=== PATIENT | male | born 1980 | race Caucasian/White ===

== ENCOUNTER 2024-05-02 02:11 | Emergency (ER) | payer MEDICAID, SELFPAY ==
[2024-05-02 02:17] VITALS: BMI 33.5
[2024-05-02 02:18] VITALS: BP 196/116; PULSE 84; RESP 18; TEMP 36.6; O2SAT 95
--- NOTE | 2024-05-02 02:22 | EKG_ITS ---
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
--- NOTE | 2024-05-02 02:22 | XR_ITS ---
Examination: CT abdomen and pelvis without contrast. Coronal 3-D reconstructions. Sagittal 2-D reconstructions. Date and time of exam:May 02, 2024 0244 hrs. Indications: Onset left-sided flank pain today CTDI: vol (mGy): 11.81 DLP: (mGycm): 718 Technique: Axial images of the abdomen have been obtained, 3 mm slice thickness Intravenous contrast material has not been administered. Low dose protocols were performed. One or more of the following dose reduction techniques were used; automated exposure control, adjustment of the mA and/or KV according to patient size, use of iterative reconstruction technique. Findings: Diffuse fatty infiltration throughout the liver Absent gallbladder Spleen not enlarged No pancreatic mass 34 mm right adrenal mass which is partly fat-containing Mild to moderate bilateral renal parenchymal scar formation with perinephric stranding No renal or ureteral calculi, no hydronephrosis 12 mm fat-containing umbilical hernia Normal appendix No bowel obstruction No prostatomegaly No bladder mass Moderate disc narrowing L5-S1 L5-S1 3 mm central lumbar disc bulge Impression: 34 mm right adrenal mass which is partly fat-containing, recommend elective MRI abdomen adrenal glands follow-up, pre and postcontrast No renal or ureteral calculi, no hydronephrosis, minimal perinephric stranding, clinical correlation advised Normal appendix Moderate degenerative disc disease L5-S1, 3 mm central lumbar disc bulge
--- NOTE | 2024-05-02 02:22 | XR_ITS ---
Examination: CT brain head without contrast. 2-D sagittal coronal reconstructions Date and time of exam:May 02, 2024 0242 hrs. Indications: Headaches with high blood pressure today CTDI: vol (mGy):49.70 DLP: (mGycm):997 Technique: Multiple CT axial sections of the brain have been obtained, 5 mm slice thickness. Contrast has not been administered. 2-D sagittal, coronal reconstructions have been obtained Low dose protocols were performed. One or more of the following dose reduction techniques were used; automated exposure control, adjustment of the mA and/or KV according to patient size, use of iterative reconstruction technique. Findings: No significant ventricular enlargement. Intra-axial or extra-axial hemorrhage density is not seen. No mass effect or midline shift Basal cisterns are not remarkable. Fourth ventricle is midline. Cranial vault intact. Impression: Negative for acute hemorrhage, mass effect or midline shift
--- NOTE | 2024-05-02 02:23 | XR_ITS ---
Examination: AP chest single view Technique one AP portable upright chest single view Exam date and time: May 02, 2024 1446 hours INDICATIONS: Shortness of breath today. FINDINGS: Mild vascular congestion Normal heart size No pneumonia IMPRESSION: Mild vascular congestion
--- NOTE | 2024-05-02 02:24 | EDNOTE_ITS ---
ED Headache RME/HPI General Chief Complaint: Medical Clearance Stated Complaint: MEDICAL CLEARANCE FOR HALF-WAY Time Seen by Provider: 05/02/24 02:18 Arrival date/time: 05/02/24 02:11 RME / HPI RME / HPI Narrative: This section includes all my notes and documentations, including HPI, PE, and ED course. Toby Blunt MD HPI: 43-year-old female here to be evaluated for medical clearance for incarceration due to high BP. He reports having history of hypertension. But has not been compliant with his BP medication for many months. He reports headaches and chest pain for the past week. And left flank pain. No other complaints. ROS: Respiratory: negative except as documented in HPI. Gastrointestinal: negative except as documented in HPI. Genitourinary: negative except as documented in HPI. Musculoskeletal: negative except as documented in HPI. Skin: negative except as documented in HPI. Neurological: negative except as documented in HPI. Physical Exam: General: Alert and oriented. No acute distress. Eyes: Conjunctivae and lids clear. EOMI. PERRL. ENT: No nasal congestion. Neck: Supple. No carotid bruit. No JVD. Heart: Sinus tachycardia noted. Lungs: No respiratory distress. Good air movement. No rhonchi, wheezing, rales. Chest: No tenderness. Abdomen: Soft and nontender. Normal bowel sounds. No distension. No rebound or guarding. Back: No CVA tenderness. Legs: No clubbing, cyanosis, edema. Skin: Warm and dry. Neuro: Alert and oriented X 3. Cranial Nerves II-XII grossly intact. No peripheral motor deficits. I reviewed all diagnostic test results. My interpretation of the EKG is sinus rhythm with nonspecific ST-T changes. My interpretation of the chest x-ray is no acute findings. My review of the head CT report is no acute findings. My review of the abdominal CT report is no acute findings. Blood tests and urine tests are unremarkable, except UDS positive for methamphetamine and marijuana. At this point, diagnoses include hypertension. Treatment here included clonidine and metoprolol. Significant improvement noted subjectively and objectively. Recommended more outpatient care. Based on my best medical judgment, made decision no further evaluation or treatment indicated at this time. Patient understands and agrees to the discharge instructions customized and printed, see below. Discharge Instructions from Dr. Blunt printed for you: 1. Fortunately, there is no life-threatening condition. Such as stroke or heart attack. 2. But to prevent future strokes and heart attacks, take metoprolol ER 100 mg every night. You will live longer with lower BP and slower heart rate. 3. See a private doctor on 05/03/2024 or whenever you are released. Ask to help you stay healthy, helping you to quit drugs, with good management of your BP, helping you to prevent future heart attacks and strokes, and with regular physical exam and health maintenance. Ask to review all test results and official radiology reports, to make sure you receive all necessary follow-ups and monitoring. 4. Seek immediate medical care with any concerns. Toby Blunt MD Related Data Previous Rx's ?Medication ?Instructions ?Recorded metoprolol succinate 100 mg 100 mg PO QDAY #30 tabs 05/02/24 tablet,extended release 24 hr Allergies Allergy/AdvReac Type Severity Reaction Status Date / Time No Known Allergies Allergy Verified 05/02/24 02:20 Course Quality Measures none Orders Category Date Time Status EKG (ED ONLY) *Do not use* NOW Care 05/02/24 02:[address] abdomen pelvis wo con Stat Exams 05/02/24 02:[address] head/brain wo con Stat Exams 05/02/24 02:22 Taken EKG (ED Only) Stat Exams 05/02/24 02:22 Draft XR chest 1V portable Stat Exams 05/02/24 02:23 Taken Alcohol, Blood Medical Stat Lab 05/02/24 02:32 Completed CBC Stat Lab 05/02/24 02:32 Completed CMP [Comprehensive Metabolic Panel] Stat Lab 05/02/24 02:32 Completed Drug Screen,Urine Stat Lab 05/02/24 03:09 Completed Magnesium Stat Lab 05/02/24 02:32 Completed TSH [Thyroid Stimulating Hormone] Stat Lab 05/02/24 02:32 Completed Troponin I Stat Lab 05/02/24 02:32 Completed UA [Urinalysis] Stat Lab 05/02/24 03:09 Completed KCL 10% Liq UDC 15 ML Med 05/02/24 03:20 Discontinued 40 meq PO X1 ONE Metoprolol Succinate Xl [Toprol Xl] Med 05/02/24 02:18 Discontinued 100 mg PO X1 ONE cloNIDine HCL [Catapres] Med 05/02/24 02:18 Discontinued 0.3 mg PO X1 ONE Vital Signs Vital signs: Vital Signs Temperature 97.8 F 05/02/24 02:18 Pulse Rate 84 05/02/24 02:18 Respiratory Rate 18 05/02/24 02:18 Blood Pressure 196/116 H 05/02/24 02:18 Pulse Oximetry (%) 95 05/02/24 02:18 Oxygen Delivery Method Room Air 05/02/24 02:18 Headache Patient data External records reviewed:: None Clinical information provided by:: patient and law enforcement Social determinants that could affect healthcare access:: substance use Patient has the following chronic illnesses:: Substance abuse and hypertension How is presenting disease/condition affected by chronic disease/condition?: exacerbated by Evaluation data The following diagnostics were reviewed and interpreted by me:: EKG tracing(s) (My interpretation of the EKG is: Sinus rhythm (82 bpm) with nonspecific ST-T changes. Toby Blunt MD) Lab and/or radiology exams considered but not ordered:: None Interpretation Summary: Hypertension Medications / Prescriptions Medications or Prescriptions considered but not ordered:: None Medication administrations:: Medication Administration History Discontinued Medications Clonidine (Clonidine Hcl 0.1 Mg Tablet) 0.3 mg PO X1 ONE Stop: 05/02/24 02:19 Last Admin: 05/02/24 02:28 Dose: 0.3 mg Documented By: GB Metoprolol Succinate (Metoprolol Succinate Xl 25 Mg Tabcr) 100 mg PO X1 ONE Stop: 05/02/24 02:19 Last Admin: 05/02/24 02:29 Dose: 100 mg Documented By: GB Potassium Chloride (Potassium Chloride 10% 20 Meq/15 Ml Udc) 40 meq PO X1 ONE Stop: 05/02/24 03:21 Metoprolol and clonidine and oral KCl Consultations Consultation(s) initiated? (list below): No Diagnosis Differential diagnosis headache: migraine, tension headache, subarachnoid hemorrhage, headache, sinusitis and postconcussion syndrome Most likely diagnosis given after review of the tests above:: Hypertension Admission Indicated Admission indicated?: not indicated Admission Request Was there a request for admission?: No Disposition Plan Disposition Plan: Discharge Discharge Attestation Discharge Attestation: The patient and all family members were given an opportunity to ask questions and understood the discharge instructions. Discharge instructions specifically effects, indications for sooner follow up or return to the emergency department, and the expected course of current diagnosis. Patient condition: Stable Discharge Plan Plan Patient Disposition: Residential/Court/Law Prescriptions/Referrals Prescriptions/Med Rec: New metoprolol succinate 100 mg tablet extended release 24 hr 100 mg PO QDAY Qty: 30 1RF Referrals: No Primary/Family,Physician [Primary Care Provider] - In 1 week Problem List Clinical Impression: Medical clearance for incarceration, Hypertension Patient/Caregiver Discharge Instructions Discharge Activity: activity as tolerated Education Materials: ED Hypertension, Established Additional Instructions: Discharge Instructions from Dr. Blunt printed for you: 1. Fortunately, there is no life-threatening condition. Such as stroke or heart attack. 2. But to prevent future strokes and heart attacks, take metoprolol ER 100 mg every night. You will live longer with lower BP and slower heart rate. 3. See a private doctor on 05/03/2024 or whenever you are released. Ask to help you stay healthy, helping you to quit drugs, with good management of your BP, helping you to prevent future heart attacks and strokes, and with regular physical exam and health maintenance. Ask to review all test results and official radiology reports, to make sure you receive all necessary follow-ups and monitoring. 4. Seek immediate medical care with any concerns. Print Language: Portuguese
[2024-05-02 02:28] VITALS: BP 196/116; PULSE 87
[2024-05-02] MEDS: cloNIDine HCL 0.1 MG TABLET 0.3 MG PO (02:28)
[2024-05-02 02:29] VITALS: BP 196/116; PULSE 86
[2024-05-02] MEDS: METOPROLOL SUCCINATE XL 25 MG TABCR 100 MG PO (02:29)
[2024-05-02 02:42] LABS: Basophils # (Auto) 0.1 Thou/mm3 (0.0-0.2); Basophils % (Auto) 1 % (0-2.5); Eosinophils # (Auto) 0.2 Thou/mm3 (0.0-0.5); Eosinophils % (Auto) 2 % (0-10); Hematocrit 40.3 % (41.0-53.0); Hemoglobin 13.7 g/dL (13.5-16.0); Immature Granulocytes % (Auto) 0 % (0-0); Immature Granulocytes Auto 0.04 Thou/mm3 (0.00-0.00); Lymphocytes # (Auto) 1.9 Thou/mm3 (1.0-4.8); Lymphocytes % (Auto) 20 % (10-50); Mean Corpuscular Hemoglobin 28.8 pg (25.0-35.0); Mean Corpuscular Volume 85 fL (80-100); Monocytes # (Auto) 1.1 Thou/mm3 (0.0-0.8); Monocytes % (Auto) 11 % (0-12); Neutrophils # (Auto) 6.2 Thou/mm3 (1.8-7.7); Neutrophils % (Auto) 66 % (37-80); Nucleated Red Blood Cell % 0 /100 WBC (0); Platelet Count 276 Thou/mm3 (140-440); RDW Standard Deviation 42.5 fL (35.1-43.9); Red Blood Count 4.75 Miln/mm3 (4.50-5.90); White Blood Count 9.5 Thou/mm3 (3.8-10.6)
[2024-05-02 03:02] LABS: Alanine Aminotransferase 23 U/L (10-49); Albumin, Serum 4.3 gm/dL (3.5-5.0); Albumin/Globulin Ratio 1.3 (1.2-2.2); Alcohol, Blood Medical < 3.0 mg/dL (0-10.0); Alkaline Phosphatase 136 U/L (46-116); Anion Gap 7 (7-16); Aspartate Amino Transferase 14 U/L (0-34); BUN/Creatinine Ratio 12 Ratio (12-20); Bilirubin,Total 0.4 mg/dL (0.3-1.2); Blood Urea Nitrogen 12 mg/dL (9-23); Calcium 9.2 mg/dL (8.3-10.6); Calcium (Corrected) 9.2 mg/dL (8.5-10.1); Carbon Dioxide 25.4 mMol/L (20.0-31.0); Chloride 109 mMol/L (98-107); Estimated Creatinine Clearance 117.1 mL/min (>60); Globulin 3.2 gm/dL (2.3-3.5); Glucose 113 mg/dL (74-106); Magnesium 2.2 mg/dL (1.6-2.6); Osmolality,Calculated 281 (275-295); Potassium 3.2 mMol/L (3.4-5.1); Sodium 141 mMol/L (136-145); Thyroid Stimulating Hormone 1.49 uIU/mL (0.55-4.78); Total Protein 7.5 gm/dL (5.7-8.2); Troponin I < 0.020 ng/mL (0.0-0.045); eGFR > 60 See Note
--- NOTE | 2024-05-02 03:13 | PRELIM_ITS ---
CT scan of the head without intravenous contrast (axial sections with sagittal and coronal reformats) . May 02, 2024 at 0242 hours.Clinical History: Headache and high BP.Comparison: No prior study i s available for comparison. Findings:No evidence of intracranial hemorrhage, mass effect or midline s hift. The ventricles and CSF spaces are unremarkable. The calvarium is unremarkable. The mastoid air cells and the visualized paranasal sinuses are clear.Impression:No evidence of intracranial hemorrhag e, mass effect or midline shift. Report Electronically Signed By: Bar Kang 05/02/2024 3:12:51 AM [EST]
[2024-05-02 03:18] LABS: Collection Type, Urine Clean Catch; Squamous Epithelial Cell,Urine 0 /hpf (0-5); WBC,Urine 0 /hpf (0-5)
[2024-05-02 03:25] LABS: Bilirubin,Urine Negative (Negative); Blood,Urine Trace (Negative); Clarity,Urine Clear (Clear/Hazy); Color,Urine Lt-Yellow (Lt Yel-Yel); Glucose, Urine Negative (Negative); Ketones,Urine Negative (Negative); Leukocyte Esterase,Urine Negative (Negative); Nitrite,Urine Negative (Negative); Protein,Urine 1+ (Neg - Trace); RBC,Urine 4 /hpf (0-3); Specific Gravity,Urine 1.024 (1.001-1.035); Urobilinogen,Urine Negative mg/dL (0.0-1.0)
--- NOTE | 2024-05-02 03:26 | PRELIM_ITS ---
CT scan of the abdomen and pelvis without intravenous contrast (axial sections with sagittal and cecilia nal reformats) May 02, 2024 at 0244 hours Clinical History: Left flank pain Comparison: No prior study is available for comparison. Findings:The lung bases are clear.The gallbladder is surgically a bsent. There is a 3.4 cm right adrenal adenoma. Nonspecific perinephric fat stranding is noted bilate rally. The liver, pancreas, spleen, and left adrenal are unremarkable on this noncontrast study.No ev idence of bowel obstruction. The appendix is within normal limits (images [id number]). There is no m esenteric or retroperitoneal adenopathy.The urinary bladder is unremarkable. There is no free fluid o r free air.The osseous structures are unremarkable.Impression:1. No evidence of acute intra-abdominal or pelvic pathology.2. Right adrenal adenoma.3. Perinephric fat stranding bilaterally. While nonspec ific, the possibility of urinary infection cannot be excluded. Recommend clinical correlation. 4. Oth er findings as described above. Report Electronically Signed By: Bar Kang 05/02/2024 3:25:08 AM [ EST]
[2024-05-02 03:48] LABS: Amphetamine/Methamp Scrn,U Positive (Negative); Barbiturate Screen,Urine Negative (Negative); Benzodiazepines Screen,Urine Negative (Negative); Benzoylecgonine Screen, Ur Negative (Negative); Fentanyl Screen,Urine Negative (Negative); Opiate Screen,Urine Negative (Negative); THC Screen,Urine Positive (Negative)
[2024-05-02 03:50] VITALS: BP 172/110; PULSE 84; RESP 17; TEMP 36.8; O2SAT 98
[2024-05-02 04:26] VITALS: BP 158/106
[2024-05-02] MEDS: POTASSIUM CHLORIDE 10% 20 MEQ/15 ML UDC 40 MEQ PO (04:27)
== END 2024-05-02 04:28 ==
PROVIDERS: Emergency Provider Emergency Medicine
DX: Z02.89 Encounter for other administrative examinations (principal); I10 Essential (primary) hypertension; Z91.148 Patient's other noncompliance with medication regimen for other reason
CPT/HCPCS: 36415; 70450; 71045; 74176; 80053; 80307; 80320; 81001; 83735; 84443; 84484; 85025; 93005; 99284; A9270; G0480